=== PATIENT | female | born 1970 | race Two or more races ===

== ENCOUNTER 2022-11-22 17:34 | Emergency (ER) | payer OTHER ==
[~2022-11-22] VITALS: Ht 165.1 cm; Wt 83.5 kg
[2022-11-22] MEDS ORDERED: PROTONIX40 MG (17:49)
[2022-11-22] MEDS ORDERED: GLIPIZIDE XL10 MG (17:49)
[2022-11-22] MEDS ORDERED: LASIX40 MG (17:49)
[2022-11-22] MEDS ORDERED: PROAIR RESPICL90 MCG (17:49)
[2022-11-22] MEDS ORDERED: ALL DAY ALLERGY10 M3 (17:49)
[2022-11-22] MEDS ORDERED: LANOXIN125 MCG (17:49)
[2022-11-22] MEDS ORDERED: JANUVIA100 MG (17:50)
[2022-11-22] MEDS ORDERED: TRULICITY1.5 MG/0.5 (17:50)
[2022-11-22] MEDS ORDERED: TRESIBA100 UNIT/1 (17:50)
[2022-11-22] MEDS ORDERED: CARVEDILOL3.125 MG (17:51)
[2022-11-22] MEDS ORDERED: ALDACTONE25 MG (17:52)
[2022-11-22] MEDS ORDERED: ATORVASTATIN CA20 MG (17:52)
[2022-11-22] MEDS ORDERED: ZESTRIL5 MG (17:52)
== END 2022-11-22 22:27 | disposition home or self-care (01) ==
LOC: ER 17:34
DX: I11.0 Hypertensive heart disease with heart failure (principal); I50.9 Heart failure, unspecified; J45.909 Unspecified asthma, uncomplicated; Z88.6 Allergy status to analgesic agent; Z91.040 Latex allergy status; Z20.822 Contact with and (suspected) exposure to COVID-19